=== PATIENT | male | born 2000 | race Caucasian/White ===

== ENCOUNTER 2022-11-09 03:44 | Emergency (ER) | payer BC ==
[2022-11-09] MEDS ORDERED: BENADRYL 25 MG CAPSULE PO ONE (04:04)
[2022-11-09] MEDS ORDERED: BENADRYL 25 MG CAPSULE ONE (04:12)
[2022-11-09 04:26] LABS: Absolute Neutrophil Ct (ANC) 3.38 x10^3/uL (1.4-6.9); BASOPHIL % 1.1 % (0.0-0.4); Basophil (Absolute #) 0.09 x10^3/uL (0-0.4); Eosinophil % 2.5 % (0.00-5.0); Eosinophil (Absolute #) 0.21 x10^3/uL (0-0.5); Hematocrit 38.3 % (42-50); Hemoglobin 13.9 g/dL (12.5-18.0); IMMATURE GRAN # 0.02 x10^3u/L (0.00-0.03); IMMATURE GRAN % 0.2 % (0.00-0.4); Lymphocyte (Absolute #) 4.46 x10^3/uL (1.0-4.6); Mean Cell Volume 84.7 fL (78-100); Mean Corpuscular Hemoglobin 30.8 pg (26-32); Mean Corpuscular Hgb Concent. 36.3 g/dL (32-36); Monocyte (Absolute #) 0.41 x10^3/uL (0.0-1.3); Monocytes % 4.8 % (0.0-12.0); Neutrophil % 39.4 % (36.0-66.0); Platelet Count 279 x10^3/uL (150-450); Red Blood Count 4.52 x10^6/uL (4.1-5.6); Red Cell Distribution Width 11.7 % (11.5-14.0); White Blood Count 8.6 x10^3/uL (4.0-10.5)
[2022-11-09 04:42] LABS: ALBUMIN 4.6 g/dL (3.5-5.0); ALKALINE PHOSPHATASE 77 U/L (38-126); ANION GAP 19.5 MEQ/L (5-15); BLOOD UREA NITROGEN 16 mg/dL (9-20); CHLORIDE 104 mmol/L (98-107); Calcium 9.3 mg/dL (8.4-10.2); Carbon Dioxide 18 mmol/L (22-30); Creatinine 1 0.84 mg/dL (0.66-1.25); EST GLOMERULAR FILTRATION RATE > 60.0 ML/MIN; Glucose 151 mg/dL (74-106); SGOT/AST 22 U/L (17-59); SGPT/ALT 16 U/L (0-50); SODIUM 138 mmol/L (137-145); Total Protein 7.4 g/dL (6.3-8.2)
[2022-11-09 04:46] LABS: Potassium 2.9 mmol/L (3.5-5.1)
[2022-11-09 05:01] LABS: Amphetamine,Urine NEGATIVE (NEGATIVE); Barbiturate,Urine NEGATIVE (NEGATIVE); Benzodiazepine,Urine NEGATIVE (NEGATIVE); Cocaine,Urine NEGATIVE (NEGATIVE); Methadone,Urine NEGATIVE (NEGATIVE); Opiate,Urine NEGATIVE (NEGATIVE); PCP,Urine NEGATIVE (NEGATIVE); THC,Urine POSITIVE (NEGATIVE)
[2022-11-09] MEDS ORDERED: Klor Con PO ONE ×2 (05:17→05:21)
[2022-11-09] MEDS ORDERED: Sodium Chloride 0.9% 1000 ML 1,000 ML IV STA (05:18)
[2022-11-09] MEDS ORDERED: Sodium Chloride 0.9% 1000 ML 1,000 ML ONE (05:21)
[2022-11-09] MEDS ORDERED: Magnesium 1 Gm / 100 Ml D5W*** 200 ML IV ONE (05:21)
[2022-11-09] MEDS: Magnesium 1 Gm / 100 Ml D5W*** 100 ML IV SCH ×2 (05:24→05:58)
--- NOTE | 2022-11-09 05:35 | ERPHSYRPT ---
- History of Present Illness Time Seen by Provider: 11/09/22 05:32 Source: patient Exam Limitations: no limitations Patient Subjective Stated Complaint: Pt reports "I was working when both of my hands went numb and my left foot so I drove as fast as I could here. I was just put on some stomach medicine the other day." Triage Nursing Assessment: Pt alert and oriented x3, answers questions appropriately. No apparent respiratory distress. Skin w/p/d. Ambulated to ED cot without difficulty. Intact sensation in all four extremities. Physician History: Patient is a 22-year-old male presents to our ED for evaluation of numbness to his extremities. 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 Patient states his hands and left foot became numb. Patient's upper extremities started posturing. Patient currently in the room tremoring. Patient denies anxiety. No pain. Patient admits to history of marijuana use. No other illicits. Patient currently on pantoprazole. Symptoms are mild to moderate in intensity. No specific worsening improving factors. Patient denies a history of the same. He voices no other complaints or concerns at this time. Portions of this note were created with voice recognition technology. There may be grammatical, spelling, punctuation or sound alike errors Timing/Duration: today Severity: moderate Modifying Factors: Improves With: nothing Associated Symptoms: denies symptoms Allergies/Adverse Reactions: No Known Drug Allergies Allergy (Verified 11/09/22 04:04) Home Medications: Pantoprazole 20 mg [Protonix 20MG Tablet] 20 mg PO DAILY 11/09/22 [History] Hx Tetanus, Diphtheria Vaccination/Date Given: Yes Hx Influenza Vaccination/Date Given: No Hx Pneumococcal Vaccination/Date Given: No Travel Risk - International Travel Have you traveled outside of the country in past 3 weeks: No - Coronavirus Screening Are you exhibiting any of the following symptoms?: No Close contact with a COVID-19 positive Pt in past 14-21 Days: No - Vaccine Status Have you recieved a Covid-19 vaccination: No - Review of Systems Constitutional: No Symptoms, No Fever, No Chills Eyes: No Symptoms Ears, Nose, & Throat: No Symptoms Respiratory: No Symptoms, No Cough, No Dyspnea Cardiac: No Symptoms, No Chest Pain, No Edema, No Syncope Abdominal/Gastrointestinal: No Symptoms, No Abdominal Pain, No Nausea, No Vo miting, No Diarrhea Genitourinary Symptoms: No Symptoms, No Dysuria Musculoskeletal: No Symptoms, No Back Pain, No Neck Pain Skin: No Symptoms, No Rash Neurological: No Symptoms, No Dizziness, No Focal Weakness, No Sensory Changes Psychological: No Symptoms Endocrine: No Symptoms Hematologic/Lymphatic: No Symptoms Immunological/Allergic: No Symptoms All Other Systems: Reviewed and Negative - Past Medical History Pertinent Past Medical History: No Neurological History: No Pertinent History ENT History: No Pertinent History Cardiac History: Other Respiratory History: No Pertinent History Endocrine Medical History: No Pertinent History GI Medical History: No Pertinent History Other Medical History: heart defect at - Past Surgical History Past Surgical History: Yes Musculoskeletal: Orthopedic Surgery Other Surgical History: teeth removed, two right knee surgeries. - Social History Smoking Status: Never smoker Exposure to second hand smoke: No Drug Use: marijuana Patient Lives Alone: No - Nursing Vital Signs Nursing Vital Signs: Initial Vital Signs Temperature 97.5 F 11/09/22 03:54 Pulse Rate 94 H 11/09/22 03:54 Respiratory Rate 15 11/09/22 03:54 Blood Pressure 123/76 11/09/22 03:54 O2 Sat by Pulse Oximetry 100 11/09/22 03:54 Pain Scale Pain Intensity 0 - Physical Exam General Appearance: no apparent distress, alert Eye Exam: PERRL/EOMI, eyes nml inspection Ears, Nose, Throat Exam: normal ENT inspection, TMs normal, pharynx normal, moist mucous membranes Neck Exam: normal inspection, non-tender, supple, full range of motion Respiratory Exam: normal breath sounds, lungs clear, airway intact, No respiratory distress Cardiovascular Exam: regular rate/rhythm, normal heart sounds, normal peripheral pulses Gastrointestinal/Abdomen Exam: soft, normal bowel sounds, No tenderness, No mass Back Exam: normal inspection, normal range of motion, No CVA tenderness, No vertebral tenderness Extremity Exam: normal inspection, normal range of motion, pelvis stable Neurologic Exam: alert, oriented x 3, cooperative, normal mood/affect, nml cerebellar function, nml station & gait, sensation nml, No motor deficits Skin Exam: normal color, warm, dry, No rash Lymphatic Exam: No adenopathy SpO2 Interpretation: normal SpO2: 98 O2 Delivery: Room Air - Course Nursing assessment & vital signs reviewed: Yes Ordered Tests: Active Orders 24 hr Category Date Time Status Clean Catch Urine Specimen STAT Care 11/09/22 04:14 Active CBC W DIFF Stat Lab 11/09/22 04:23 Completed CMP Stat Lab 11/09/22 04:23 Completed MAG [MAGNESIUM] Stat Lab 11/09/22 04:10 Completed TSH [TSH, 3RD Generation] Stat Lab 11/09/22 04:23 Completed Urine Triage Profile Stat Lab 11/09/22 04:38 Completed Medication Summary Generic Name Dose Route Start Last Admin Trade Name Freq PRN Reason Stop Dose Admin Sodium Chloride 1,000 mls @ 999 mls/hr 11/09/22 05:18 11/09/22 05:24 Sodium Chloride 0.9% 1000 Ml IV 11/09/22 06:18 999 mls/hr .Q1H1M STA Administration Magnesium Sulfate/Dextrose 100 mls @ 100 mls/hr 11/09/22 05:30 11/09/22 05:58 Magnesium 1 Gm / 100 Ml D5w IV 11/09/22 07:29 100 mls/hr Q1H LEYDA Administration Discontinued Medications Generic Name Dose Route Start Last Admin Trade Name Freq PRN Reason Stop Dose Admin Diphenhydramine HCl 25 mg 11/09/22 04:04 11/09/22 04:13 Diphenhydramine Hcl 25 Mg Capsule PO 11/09/22 04:05 25 mg STAT ONE Administration Diphenhydramine HCl Confirm 11/09/22 04:12 Diphenhydramine Hcl 25 Mg Capsule Administered 11/09/22 04:13 Dose 25 mg .ROUTE .STK-MED ONE Sodium Chloride Confirm 11/09/22 05:21 Sodium Chloride 0.9% 1000 Ml Administered 11/09/22 05:22 Dose 1,000 mls @ ud .ROUTE .STK-MED ONE Potassium Chloride 40 meq 11/09/22 05:17 11/09/22 05:24 Potassium Chloride Tab 10 Meq Tab PO 11/09/22 05:18 40 meq STAT ONE Administration Potassium Chloride Confirm 11/09/22 05:21 Potassium Chloride Tab 10 Meq Tab Administered 11/09/22 05:22 Dose 40 meq PO .STK-MED ONE Lab/Rad Data: Laboratory Result Diagrams 11/09/22 04:23 11/09/22 04:23 Laboratory Results 11/09/22 11/09/22 11/09/22 Range/Units 04:38 04:23 04:23 WBC (4.0-10.5) x10^3/uL RBC (4.1-5.6) x10^6/uL Hgb (12.5-18.0) g/dL Hct (42-50) % MCV (78-100) fL MCH (26-32) pg MCHC (32-36) g/dL RDW (11.5-14.0) % Plt Count (150-450) x10^3/uL MPV (7.5-11.0) fL Gran % (36.0-66.0) % Immature Gran % (Auto) (0.00-0.4) % Nucleat RBC Rel Count (0.00-0.1) % Eos # (Auto) (0-0.5) x10^3/uL Immature Gran # (Auto) (0.00-0.03) x10^3u/L Absolute Lymphs (auto) (1.0-4.6) x10^3/uL Absolute Monos (auto) (0.0-1.3) x10^3/uL Absolute Nucleated RBC (0.00-0.01) x10^3u/L Lymphocytes % (24.0-44.0) % Monocytes % (0.0-12.0) % Eosinophils % (0.00-5.0) % Basophils % (0.0-0.4) % Absolute Granulocytes (1.4-6.9) x10^3/uL Basophils # (0-0.4) x10^3/uL Sodium 138 (137-145) mmol/L Potassium 2.9 L* (3.5-5.1) mmol/L Chloride 104 (98-107) mmol/L Carbon Dioxide 18 L (22-30) mmol/L Anion Gap 19.5 H (5-15) MEQ/L BUN 16 (9-20) mg/dL Creatinine 0.84 (0.66-1.25) mg/dL Estimated GFR > 60.0 ML/MIN Glucose 151 H (74-106) mg/dL Calcium 9.3 (8.4-10.2) mg/dL Magnesium (1.6-2.3) mg/dL Total Bilirubin 0.70 (0.2-1.3) mg/dL AST 22 (17-59) U/L ALT 16 (0-50) U/L Alkaline Phosphatase 77 (38-126) U/L Serum Total Protein 7.4 (6.3-8.2) g/dL Albumin 4.6 (3.5-5.0) g/dL TSH 3rd Generation 3.620 (0.47-4.68) mIU/L Urine Opiates Level NEGATIVE (NEGATIVE) Ur Methadone NEGATIVE (NEGATIVE) Urine Barbiturates NEGATIVE (NEGATIVE) Ur Phencyclidine (PCP) NEGATIVE (NEGATIVE) Urine Amphetamine NEGATIVE (NEGATIVE) U Benzodiazepine Level NEGATIVE (NEGATIVE) Urine Cocaine NEGATIVE (NEGATIVE) Urine Marijuana (THC) POSITIVE (NEGATIVE) 11/09/22 11/09/22 Range/Units 04:23 04:10 WBC 8.6 (4.0-10.5) x10^3/uL RBC 4.52 (4.1-5.6) x10^6/uL Hgb 13.9 (12.5-18.0) g/dL Hct 38.3 L (42-50) % MCV 84.7 (78-100) fL MCH 30.8 (26-32) pg MCHC 36.3 H (32-36) g/dL RDW 11.7 (11.5-14.0) % Plt Count 279 (150-450) x10^3/uL MPV 10.0 (7.5-11.0) fL Gran % 39.4 (36.0-66.0) % Immature Gran % (Auto) 0.2 (0.00-0.4) % Nucleat RBC Rel Count 0.0 (0.00-0.1) % Eos # (Auto) 0.21 (0-0.5) x10^3/uL Immature Gran # (Auto) 0.02 (0.00-0.03) x10^3u/L Absolute Lymphs (auto) 4.46 (1.0-4.6) x10^3/uL Absolute Monos (auto) 0.41 (0.0-1.3) x10^3/uL Absolute Nucleated RBC 0.00 (0.00-0.01) x10^3u/L Lymphocytes % 52.0 H (24.0-44.0) % Monocytes % 4.8 (0.0-12.0) % Eosinophils % 2.5 (0.00-5.0) % Basophils % 1.1 (0.0-0.4) % Absolute Granulocytes 3.38 (1.4-6.9) x10^3/uL Basophils # 0.09 (0-0.4) x10^3/uL Sodium (137-145) mmol/L Potassium (3.5-5.1) mmol/L Chloride (98-107) mmol/L Carbon Dioxide (22-30) mmol/L Anion Gap (5-15) MEQ/L BUN (9-20) mg/dL Creatinine (0.66-1.25) mg/dL Estimated GFR ML/MIN Glucose (74-106) mg/dL Calcium (8.4-10.2) mg/dL Magnesium 1.9 (1.6-2.3) mg/dL Total Bilirubin (0.2-1.3) mg/dL AST (17-59) U/L ALT (0-50) U/L Alkaline Phosphatase (38-126) U/L Serum Total Protein (6.3-8.2) g/dL Albumin (3.5-5.0) g/dL TSH 3rd Generation (0.47-4.68) mIU/L Urine Opiates Level (NEGATIVE) Ur Methadone (NEGATIVE) Urine Barbiturates (NEGATIVE) Ur Phencyclidine (PCP) (NEGATIVE) Urine Amphetamine (NEGATIVE) U Benzodiazepine Level (NEGATIVE) Urine Cocaine (NEGATIVE) Urine Marijuana (THC) (NEGATIVE) - Progress Progress: improved Progress Note: Patient is a 22-year-old male presents emergency department for evaluation of numbness to feet and hand. 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 Patient admits to a history of recurrent diarrhea. Patient states his oral intake has significantly decreased because eating triggers diarrhea. Patient has lost a considerable amount of weight. Patient has no pain. Physical exam revealed tremors. Patient's upper extremity was posturing. Patient appeared to be experiencing a panic attack. Laboratory work-up completed. Labs include CBC CMP magnesium TSH urine triage. Work-up reveals a hypokalemia at 2.9. Glucose was elevated at 150. Urine triage revealed marijuana use. Patient received 40 mEq of potassium chloride to address hy pokalemia. Magnesium was repleted as well. Patient received 2 g magnesium IV. Patient reassessed. Symptoms resolved. Patient states he feels much better. At this point we do not know why patient is experiencing diarrhea. Patient will require an outpatient work-up. Patient will be referred to a primary care doctor for follow-up. Significant other at bedside. They voiced no other complaints or concerns at this time. Portions of this note were created with voice recognition technology. There may be grammatical, spelling, punctuation or sound alike errors Patient has no significant comorbidities. Problem addressed is acute. Complexity of problem addressed is moderate. Acute condition with systemic manifestations. No critical care time. Patient served as an independent historian. Complexity of data reviewed and analyzed is moderate. Test ordered. Test reviewed independently by Dr. Johnson. No imaging studies indicated. Risk of complications and or risk morbidity/mortality of patient management is high. Patient received intravenous medications requiring monitoring. Patient received oral potassium IV fluid rehydration. Patient will not require hospitalization. Will discharge patient home. Patient agrees to follow-up with his primary care doctor within 48 hours. Plan of care established via shared decision making model. Time spent at discharge is approximately 10 minutes. Diagnosis is dehydration, marijuana use, diarrhea, hypokalemia. Vital stable Portions of this note were created with voice recognition technology. There may be grammatical, spelling, punctuation or sound alike errors 11/09/22 06:22 Counseled pt/family regarding: lab results, diagnosis, need for follow-up - Departure Departure Disposition: Home Clinical Impression: Hypokalemia, Paresthesia, Diarrhea, Dehydration, Hyperglycemia Condition: Stable Critical Care Time: No Referrals: DOCTOR,NO FAMILY [Primary Care Provider] - Follow up/PCP as directed ALICE BRYANT MD [ACTIVE STAFF] - Follow up/PCP as directed Additional Instructions: Discharge/Care Plan BJORN ZAMAN was seen on 11/09/22 in the Emergency Room. The patient was counseled regarding Diagnosis,Lab results, Imaging studies, need for follow up and when to return to the Emergency Room. Prescriptions given: Discharge Note I have spoken with the patient and/or caregivers. I have explained the patient's condition, diagnosis and treatment plan based on the information available to me at this time. I have answered the patient's and/or caregiver's questions and addressed any concerns. The patient and/or caregivers have as good understanding of the patient's diagnosis, condition and treatment plan as can be expected at this point. The vital signs have been stable. The patient's condition is stable and appropriate for discharge from the emergency department. The patient will pursue further outpatient evaluation with the primary care physician or other designated or consulting physician as outlined in the discharge instructions. The patient and/or caregivers are agreeable to this plan of care and follow-up instructions have been explained in detail. The patient and/or caregivers have received these instruction. The patient/and or caregivers are aware that any significant change in condition or worsening of symptoms should prompt an immediate return to this or the closest emergency department or call 911.
[2022-11-09 06:07] VITALS: BP 148/97
[2022-11-09 06:37] VITALS: PULSE 73; O2SAT 99
== END 2022-11-09 06:41 | disposition home or self-care (01) ==
LOC: ED 03:44
DX: E87.6 Hypokalemia (principal); R20.2 Paresthesia of skin; R19.7 Diarrhea, unspecified; R73.9 Hyperglycemia, unspecified; Z28.310 Unvaccinated for COVID-19
CPT/HCPCS: 36000; 36415; 80053; 80307; 83735; 84443; 85025; 99284; J3475; A9270-GY